=== PATIENT | female | born 1940 | race Caucasian/White ===

== ENCOUNTER 2017-09-11 11:10 | Emergency (ER) | payer OTHER ==
[~2017-09-11] VITALS: Ht 154.9 cm; Wt 59.0 kg
[2017-09-11 11:13] VITALS: BP 117/55
--- NOTE | 2017-09-11 11:28 | NUR ---
PATIENT BIB SON C/O VOMITING X3-4DAYS. ALSO C/O INTERMITTENT NON RADIATING CP THIS AM. HAS BEEN DRINKING ALCOHOL 5 GLASSES/DAY X3MOS.HX OF ALCHOLISM, ESOPHAGEAL VARICES, CIRRHOSIS, CNF; HX SEPSIS, PNA.SKIN IS PINK/WARM/DRY; AAOX4 WITH EVEN AND STEADY GAIT; LUNGS CLEAR BL; HR EVEN AND REGULAR; PT DENIES ANY FEVER,SOB, OR COUGH AT THIS TIME; PATIENT STATES PAIN OF 0/10 AT THIS TIME; PATIENT POSITIONED FOR COMFORT; HOB ELEVATED; BEDRAILS UP X2; BED DOWN. ALL MONITORS IN PLACED;ER MD MADE AWARE OF PT STATUS.
--- NOTE | 2017-09-11 11:37 | NUR ---
DR CROCKER AT BEDSIDE.
[2017-09-11] MEDS ORDERED: FOLIC ACID 1 MG TAB PO SCH (11:40)
[2017-09-11] MEDS ORDERED: LORazepam 1 MG TAB PO ONE (11:40)
[2017-09-11] MEDS ORDERED: ONDANSETRON 4 MG/2 ML VIAL IVP ONE (11:40)
[2017-09-11] MEDS ORDERED: THIAMINE 200 MG/2 ML VIAL IV ONE (11:40)
--- NOTE | 2017-09-11 12:16 | NUR ---
CALLED PHARMACY;THERAGRAN IS NOT LOADED IN THE [facility];THEY WILL BRING THE MEDICINE IN ER.
[2017-09-11 12:25] LABS: BASOPHILS # (AUTO) 0.1 K/uL (0.00-0.22); EOSINOPHILS # (AUTO) 0.2 K/uL (0-0.4); EOSINOPHILS % (AUTO) 5.3 % (0.0-4.0); HEMATOCRIT 36.3 % (36-48); HEMOGLOBIN 11.9 g/dL (12.0-16.0); LYMPHOCYTES # (AUTO) 1.4 K/uL (2.5-16.5); LYMPHOCYTES % (AUTO) 30.7 % (20.5-51.1); MEAN CORPUSCULAR HEMOGLOBIN 27 pg (27-31); MEAN CORPUSCULAR HGB CONC 33 g/dL (33-37); MEAN CORPUSCULAR VOLUME 83 fL (80-94); MONOCYTES # (AUTO) 0.4 K/uL (0.8-1.0); NEUTROPHILS # (AUTO) 2.5 K/uL (1.8-7.7); PLATELET COUNT (AUTO) 91 K/uL (140-450); RED CELL DISTRIBUTION WIDTH 20.1 % (11.6-13.7); WHITE BLOOD COUNT (AUTO) 4.6 K/uL (4.8-10.8)
[2017-09-11 12:39] LABS: ANION GAP 16.9 (8-16); ASPARTATE AMINOTRANSFERASE 97 U/L (15-37); CARBON DIOXIDE 26.7 mmol/L (21-32); CHLORIDE 103 mmol/L (98-107); CREATININE 0.8 mg/dL (0.6-1.3); GLUCOSE 131 mg/dL (74-106); POTASSIUM 3.6 mmol/L (3.5-5.1); SODIUM SERUM 143 mmol/L (136-145); TOTAL BILIRUBIN 0.7 mg/dL (0.0-1.0); UREA NITROGEN, BLOOD 12 mg/dL (7-18)
[2017-09-11 13:13] LABS: LIPASE 134 U/L (73-393)
--- NOTE | 2017-09-11 14:07 | NUR ---
PT ABLE TO WALK STRAIGHT;PT STATES I CAN WALK FINE;ASKED PT IF SHE'S DIZZY PT STATES "NO";ER NOTIFIED;
[2017-09-11 15:05] LABS: APPEARANCE,URINE CLEAR (CLEAR); BILIRUBIN,URINE NEGATIVE (NEGATIVE); BLOOD, URINE NEGATIVE (NEGATIVE); COLOR,URINE YELLOW (YELLOW); LEUKOCYTE ESTERASE ,URINE NEGATIVE (NEGATIVE); NITRITE, URINE NEGATIVE (NEGATIVE); UGLUCOSE NEGATIVE (NEGATIVE)
--- NOTE | 2017-09-11 15:20 | NUR ---
PER CLEAN ROOM ASSEMBLER NANCY;SHE CALLED PT'S TO [employer] [facility] HERE IN ER; SAID HIS SON WILL [employer]IAN PT;WILL CONTINUE TO MONITOR PT.
[2017-09-11 15:28] LABS: BARBITURATE, URINE NEG. ng/ml (NEG <=200); BENZODIAZEPINE, URINE NEG. ng/mL (NEG <=200); CANNABINOID, URINE NEG. ng/mL (NEG <=50); COCAINE, URINE NEG. ng/mL (NEG <=300); OPIATE, URINE NEG. ng/mL (NEG <=2000); PHENCYCLIDINE SCREEN,URINE NEG. ng/mL (NEG <=25)
[2017-09-11 16:05] VITALS: BP 100/67
--- NOTE | 2017-09-11 16:05 | NUR ---
Patient discharged with v/s stable. Written and verbal after care instructions given and explained. Patient verbalized understanding. Wheel Chair Assisted with to car. All questions addressed prior to discharge. Advised to follow up with PMD.
[2017-09-12] MEDS ORDERED: MULTIVITAMIN 1 TAB PO SCH (09:00)
== END 2017-09-11 16:05 | disposition home or self-care (01) ==
LOC: MED 11:10
DX: F10.129 Alcohol abuse with intoxication, unspecified (principal); R11.2 Nausea with vomiting, unspecified; R10.9 Unspecified abdominal pain
CPT/HCPCS: 36415; 71010; 80053; 80305; 81003; 82140; 82550; 83690; 83880; 84484; 85025; 85610; 85730; 93005; 96374; 96375; 99285; C1758; G0482; J2405; J3411; Q0092